=== PATIENT | female | born 1985 | race Two or more races ===

== ENCOUNTER 2025-02-11 21:21 | Emergency (ER) | payer OTHER, SELFPAY ==
[2025-02-11 21:22] VITALS: BMI 29.2
[2025-02-11 21:30] VITALS: BP 174/88; PULSE 88; RESP 18; TEMP 36.9; O2SAT 96
--- NOTE | 2025-02-11 21:32 | XR_ITS ---
Examination: Foot, right, 3 views Technique: AP, oblique, lateral views foot, 3 views Date and time of exam: February 17, 2025 2143 hours INDICATIONS: Twisting injury to the foot today with pain. FINDINGS: Acute fracture proximal fifth metatarsal shaft No dislocation No foreign body IMPRESSION: Acute nondisplaced fractures proximal fifth metatarsal shaft
--- NOTE | 2025-02-11 21:48 | PD.EDANKLE ---
Lower Extremity Injury RME/HPI General Chief Complaint: Ankle/Foot Injury Stated Complaint: TWISTED RIGHT FOOT Time Seen by Provider: 02/11/25 21:31 Arrival date/time: 02/11/25 21:21 39F with no significant PMH presents to ED with R foot pain after she twisted it. Limitations: no limitations Related Data Allergies Allergy/AdvReac Type Severity Reaction Status Date / Time No Known Allergies Allergy Verified 02/11/25 21:24 Review of Systems Review of Systems Systems Reviewed: All systems reviewed, normal except as documented Constitutional Constitutional: Reports system reviewed and no additional complaints, except as documented, Denies fever(s) and Denies headache(s) ENT Ears, Nose, Mouth, and Throat: Denies disequilibrium and Denies headache(s) Cardiovascular Cardiovascular: Reports system reviewed and no additional complaints, except as documented, Denies chest pain and Denies dyspnea Respiratory Respiratory: Reports system reviewed and no additional complaints, except as documented, Denies cough and Denies dyspnea Gastrointestinal Gastrointestinal: Reports system reviewed and no additional complaints, except as documented, Denies abdominal pain, Denies nausea and Denies vomiting Musculoskeletal Musculoskeletal: Reports as per HPI and Reports arthralgias Neurologic Neurologic: Reports system reviewed and no additional complaints, except as documented, Denies confusion, Denies disequilibrium and Denies headache(s) Psychiatric Psychiatric: Denies confusion Past Medical History Social History SMOKING STATUS: Never smoker ED Exam General Limitations: Present no limitations General appearance: Present alert and in no apparent distress Head Head exam: Present atraumatic Eye Eye exam: Present normal appearance, PERRL and EOMI ENT ENT exam: Present normal exam, normal oropharynx and mucous membranes moist Neck Neck exam: Present normal inspection, full ROM and trachea midline Chest Chest inspection: Present normal inspection and symmetric chest wall rise Respiratory Respiratory exam: Present normal lung sounds bilaterally Cardiovascular Cardiovascular exam: Present regular rate, normal rhythm and normal heart sounds Abdominal Exam Abdominal exam: Present soft and normal bowel sounds Extremities Exam Extremities exam: Present full ROM Expanded Lower Extremity Exam Foot/toe exam: Present full ROM (R) and tenderness Back Exam Back exam: Present normal inspection and full ROM Neurological Exam Neurological exam: Present alert, oriented X3 and CN II-XII intact Psychiatric Psychiatric exam: Present normal affect and normal mood Skin Skin exam: Present warm, dry, intact and normal color Course Quality Measures none Orders Category Date Time Status Crutches .NOW Care 02/11/25 22:03 Active Splint / Immobilizer STAT Care 02/11/25 22:03 Active XR foot comp RT min 3V Stat Exams 02/11/25 21:32 Completed Vital Signs Vital signs: Vital Signs Temperature 98.4 F 02/11/25 21:30 Pulse Rate 88 02/11/25 21:30 Respiratory Rate 18 02/11/25 21:30 Blood Pressure 174/88 H 02/11/25 21:30 Pulse Oximetry (%) 96 02/11/25 21:30 Oxygen Delivery Method Room Air 02/11/25 21:30 O2 at 96% on RA and WNLs Extremity Injury, Lower MDM Narrative MDM Narrative:: 39F with no significant PMH presents to ED with R foot pain after she twisted it. Physical exam reveals R foot tenderness. No ankle tenderness. ROM intact. Patient is afebrile, calm, and alert. XR reveals non-displaced fx on R proximal fifth metatarsal. Given splint, crutches, and dormitory counselor. Patient data External records reviewed:: None Clinical information provided by:: patient Social determinants that could affect healthcare access:: none Patient has the following chronic illnesses:: none How is presenting disease/condition affected by chronic disease/condition?: no chronic disease Evaluation data The following diagnostics were reviewed and interpreted by me:: radiology exam(s) Lab and/or radiology exams considered but not ordered:: ordered Interpretation Summary: above Medications / Prescriptions Medications or Prescriptions considered but not ordered:: not ordered Medication administrations:: n/a Consultations Consultation(s) initiated? (list below): No Diagnosis Extremity Injury, Lower Differential Diagnosis: ankle sprain and strain, acute internal derangement of knee, puncture wound of foot, fracture of toe and ankle fracture Most likely diagnosis given after review of the tests above:: foot fx Admission Indicated Admission indicated?: not indicated Admission Request Was there a request for admission?: No Disposition Plan Disposition Plan: Discharge Discharge Attestation Discharge Attestation: The patient and all family members were given an opportunity to ask questions and understood the discharge instructions. Discharge instructions specifically effects, indications for sooner follow up or return to the emergency department, and the expected course of current diagnosis. Patient condition: Stable Discharge Plan Plan Patient Disposition: HOME (Self Care) Discharge Disposition comment: Stable Prescriptions/Referrals Referrals: No Primary/Family,Physician [Primary Care Provider] - In 1 week Problem List Clinical Impression: Foot fracture Patient/Caregiver Discharge Instructions Education Materials: ED Fracture, Foot Additional Instructions: Please follow-up with PCP within 24-48 hours and return immediately if symptoms worsen. If problem persists, recommend outpatient PT and/or referral to ortho/educational guidance counselor. Make sure to bring disk. In the meantime, rest, use ice/heat, and/or compression. Print Language: Nepali Stand Alone Forms: Patient Portal Info Letter PA/LOAD TEST MECHANIC Supervising Physician PA/LOAD TEST MECHANIC Supervising Physician: Dr. Richardson
== END 2025-02-11 22:43 | disposition home or self-care (01) ==
PROVIDERS: Emergency Provider Emergency Medicine
DX: S92.351A Displaced fracture of fifth metatarsal bone, right foot, initial encounter for closed fracture (principal); X50.1XXA Overexertion from prolonged static or awkward postures, initial encounter; Y93.9 Activity, unspecified
CPT/HCPCS: 29515; 73630; 99283